=== PATIENT | female | born 1990 | race Caucasian/White ===

== ENCOUNTER 2017-01-17 02:33 | Emergency (ER) | payer OTHER ==
[~2017-01-17] VITALS: Ht 162.6 cm; Wt 63.5 kg
[~2017-01-17 02:33] MED LIST: ALBUTEROL 0.5ML INH; ASPERDRINK81 MG; ASPIRIN81 M2 PO; BACTRIM DS TABL1 TA1 PO; BUSPAR; BUSPAR PO; CIPRO PO; DICLOFENAC PO; DOXYCYCLINE PO; IMPLANON68 MG/IMPL SQ; LORTAB 5/500 TA1 TA1 PO; NO MEDICATIONS; NORVASC10 MG PO; PHENERGAN25 M1 PO; PREDNISONE PO; PROZAC40 MG PO; PYRIDIUM PO; TESSALON200 MG PO; TRAMADOL HCL50 M2 PO; VICODIN ES 7.51 EAC1 PO
[2017-01-17 03:29] LABS: URINE SOURCE CLEAN CATCH
[2017-01-17 03:37] LABS: URINE APPEARANCE CLOUDY; URINE BILIRUBIN NEG (NEG); URINE BLOOD 1+ (NEG); URINE COLOR YELLOW; URINE GLUCOSE NEG (NEG); URINE KETONE NEG (NEG); URINE LEUKOCYTE ESTERASE TRACE (NEG); URINE NITRATE NEG (NEG); URINE PROTEIN NEG (NEG); URINE UROBILINOGEN 0.2 MG/DL (NEG)
[2017-01-17 03:39] LABS: BASOPHIL# 0.1 X10e3 (0-0.3); BASOPHIL% 0.6 % (0-2.5); EOSINOPHIL# 0.3 X10e3 (0-0.7); EOSINOPHIL% 2.7 % (0.0-7.0); HEMATOCRIT 37.7 % (35.0-45.0); HEMOGLOBIN 12.4 gm/dL (12.0-16.0); LYMPHOCYTE# 2.9 X10e3 (1.0-3.5); LYMPHOCYTE% 26.7 % (17.0-45.0); MEAN CELL VOLUME 91.2 FL (83-96); MEAN CORPUSCULAR HEMOGLOBIN 29.9 PG (28-34); MEAN CORPUSCULAR HGB CONC 32.8 g/dL (30-36); MONOCYTE# 0.7 X10e3 (0-1.0); MONOCYTE% 6.4 % (3.0-12.0); NEUTROPHIL% 63.6 % (40-75); PLATELET COUNT 171 X10e3 (140-420); RED BLOOD COUNT 4.13 X10e (3.90-5.30); RED CELL DISTRIBUTION WIDTH 15.3 % (11.0-15.5)
[2017-01-17 03:40] LABS: DIFF IND NO
[2017-01-17 03:40] LABS: CULTURE INDICATED? YES; URBCS1 AUWI 0-2 /[HPF] (0-2); URINE BACTERIA AUWI 1+ (NEGATIVE); URINE SQUAMOUS EPITHELIAL CELL FEW /[HPF]
[2017-01-17 04:03] LABS: CALCIUM SERUM 8.8 mg/dL (8.4-10.2); CREATININE SERUM 0.6 mg/dL (0.6-1.4); GLOM FILT RATE Estimated 124.9 mL/min (>60); POTASSIUM 3.8 mmol/L (3.5-5.1)
[2017-01-20 16:00] LABS: CHLAMYDIA TRACH Detected (Not Detected); N GONOR Not Detected (Not Detected)
== END 2017-01-17 04:50 | disposition home or self-care (01) ==
LOC: CED 02:33
PROVIDERS: Emergency Medicine
DX: R10.2 Pelvic and perineal pain (principal); F41.8 Other specified anxiety disorders; F17.200 Nicotine dependence, unspecified, uncomplicated; Z98.51 Tubal ligation status; Z90.49 Acquired absence of other specified parts of digestive tract; Z91.040 Latex allergy status; Z88.8 Allergy status to other drugs, medicaments and biological substances; Z79.899 Other long term (current) drug therapy
CPT/HCPCS: 36415; 80048; 81003; 84702; 84703; 85025; 87086; 87491; 87591; 87808; 87905; 96372; 96374; 96375; 99284; J0696; J1885; J2405